=== PATIENT | male | born 1965 | race Caucasian/White ===

== ENCOUNTER 2018-04-07 11:19 | Observation (INO) | payer BC ==
[2018-04-07] MEDS ORDERED: ASPIRIN 81 MG CHEWABLE TABLETS PO ONE (11:29)
[2018-04-07 11:57] LABS: BASO % 0.6 % (0-2.0); HEMOGLOBIN 13.9 GM/dL (11.7-16.9); LYMPH % 6.6 % (8-40); MCH 30.5 pg (25.7-33.7); MCHC 34.7 g/dl (32.0-35.9); MEAN CELL VOLUME 87.8 fl (80-96); MONO % 10.9 % (3.8-10.2); NEUT % 81.9 % (42.8-82.8); PLATELET COUNT 144 K/MM3 (134-434); RBC 4.55 M/mm3 (4.00-5.60); RDW 12.9 % (11.9-15.9)
--- NOTE | 2018-04-07 12:01 | PDOC ---
History of Present Illness <Uma Nick - Last Filed: 04/07/18 14:30> - General History Source: Patient Exam Limitations: No Limitations - History of Present Illness Initial Comments: 04/07/18 11:52 The patient is a 52M with a PMH of enlarged heart, HTN, DM, "irregular heart beat" who presents to the ER with complaints of worsening lightheadedness. The patient states that he began having lightheadedness 3 days ago which has been worsening. The lightheadedness is not associated with CP, SOB, syncope, nausea, vomiting, diaphoresis. He denies any smoking, drinking, or drug use. He denies any numbness, tingling, or weakness. <Marty Lilly - Last Filed: 04/07/18 15:07> - General Chief Complaint: Revisit, Lab Variance Stated Complaint: ABNORMAL EKG Time Seen by Provider: 04/07/18 11:30 Past History <Uma Nick - Last Filed: 04/07/18 14:30> - Past Medical History Cardiac Disorders: Yes (afib, enlarged heart) COPD: No Diabetes: Yes HTN: Yes Hypercholesterolemia: Yes - Suicide/Smoking/Psychosocial Hx Smoking History: Current every day smoker Have you smoked in the past 12 months: No Information on smoking cessation initiated: No Hx Alcohol Use: No Drug/Substance Use Hx: No <Marty Lilly - Last Filed: 04/07/18 15:07> - Past Medical History Allergies/Adverse Reactions: Allergies Allergy/AdvReac Type Severity Reaction Status Date / Time No Known Allergies Allergy Verified 04/07/18 11:48 Review of Systems - Review of Systems Able to Perform ROS?: Yes Comments:: 04/07/18 12:01 GENERAL/CONSTITUTIONAL: No fever or chills. No weakness. HEAD, EYES, EARS, NOSE AND THROAT: No change in vision. No ear pain or discharge. No sore throat. CARDIOVASCULAR: No chest pain, palpitations, or lightheadedness. RESPIRATORY: No cough, wheezing, shortness of breath, or hemoptysis. GASTROINTESTINAL: No nausea, vomiting, diarrhea, constipation, or abdominal pain. GENITOURINARY: No dysuria, frequency, hematuria, or change in urination. MUSCULOSKELETAL: No joint or muscle swelling or pain. No neck or back pain. SKIN: No rash or lesions. NEUROLOGIC: Positive for lightheadedness. No headache, numbness, tingling, focal weakness, loss of consciousness, or change in strength/sensation. Is the patient limited Barbadian proficient: No <Marty Lilly - Last Filed: 04/07/18 15:07> *Physical Exam - Vital Signs Last Vital Signs Temp Pulse Resp BP Pulse Ox 100.3 F H 98 H 18 130/69 98 04/07/18 11:20 04/07/18 11:47 04/07/18 11:47 04/07/18 11:47 04/07/18 11:47 <Uma Nick - Last Filed: 04/07/18 14:30> - Vital Signs Last Vital Signs Temp Pulse Resp BP Pulse Ox 100.3 F H 98 H 18 130/69 98 04/07/18 11:20 04/07/18 11:47 04/07/18 11:47 04/07/18 11:47 04/07/18 11:47 - Physical Exam Comments: 04/07/18 12:03 GENERAL: Well developed, well nourished. Awake and alert. No acute distress. HEENT: Normocephalic, atraumatic. Hearing grossly normal. Moist mucous membranes. PERRLA, EOMI. No conjunctival pallor. Sclera are non-icteric. NECK: Supple. Full ROM. No JVD. CARDIOVASCULAR: Regular rate and rhythm. No murmurs, rubs, or gallops. PULMONARY: No evidence of respiratory distress. Coarse lung sounds in R lower lobe. ABDOMINAL: Soft. Non-tender. Non-distended. No rebound or guarding. GENITOURINARY: No CVA tenderness bilaterally. MUSCULOSKELETAL: Normal range of motion at all joints. No bony deformities or tenderness. EXTREMITIES: No cyanosis. No clubbing. No edema. No calf tenderness or swelling. SKIN: Warm and dry. Normal capillary refill. No rashes. No jaundice. NEUROLOGICAL: Alert, awake, appropriate. Cranial nerves 2-12 grossly intact.Normal speech. Gait is normal without ataxia. PSYCHIATRIC: Cooperative. Good eye contact. Appropriate mood and affect. <Marty Lilly - Last Filed: 04/07/18 15:07> Moderate Sedation - Procedure Monitoring Vital Signs: Procedure Monitoring Vital Signs Temperature 100.3 F H 04/07/18 11:20 Pulse Rate 98 H 04/07/18 11:47 Respiratory Rate 18 04/07/18 11:47 Blood Pressure 130/69 04/07/18 11:47 O2 Sat by Pulse Oximetry (%) 98 04/07/18 11:47 <ParkUma Lili - Last Filed: 04/07/18 14:30> - Procedure Monitoring Vital Signs: Procedure Monitoring Vital Signs Temperature 100.3 F H 04/07/18 11:20 Pulse Rate 98 H 04/07/18 11:47 Respiratory Rate 18 04/07/18 11:47 Blood Pressure 130/69 04/07/18 11:47 O2 Sat by Pulse Oximetry (%) 98 04/07/18 11:47 <Marty Lilly - Last Filed: 04/07/18 15:07> Heart Score/ECG Review #1 General ECG Interpretation: Sinus Rhythm, Normal Rate, Normal Intervals, No acute ischemic changes Compared to previous ECG there are: Previous ECG unavail 04/07/18 12:10 NSR vent rate 90 NV 150 QRS 98 QTc 424 No STD or GIRISH T wave inversions in II, III, aVF as well as V4-V6 No priors <Marty Lilly - Last Filed: 04/07/18 15:07> ED Treatment Course - LABORATORY CBC & Chemistry Diagram: 04/07/18 11:45 04/07/18 11:45 - ADDITIONAL ORDERS Additional order review: Laboratory Results 04/07/18 04/07/18 04/07/18 13:23 11:45 11:45 PT with INR 12.90 INR 1.09 PTT (Actin FS) 25.6 Sodium 136 Potassium 4.2 Chloride 103 Carbon Dioxide 25 Anion Gap 7 L BUN 24 H Creatinine 1.1 Creat Clearance w eGFR > 60 Random Glucose 193 H Calcium 8.9 Total Bilirubin 0.4 AST 36 ALT 72 H Alkaline Phosphatase 55 Troponin I 0.02 Total Protein 6.3 L Albumin 3.8 Opiates Screen Negative Methadone Screen Negative Barbiturate Screen Negative Phencyclidine Screen Negative Ur Amphetamines Screen Negative MDMA (Ecstasy) Screen Negative Benzodiazepines Screen Negative Cocaine Screen Negative U Marijuana (THC) Screen Negative 04/07/18 11:45 RBC 4.55 MCV 87.8 MCHC 34.7 RDW 12.9 MPV 10.0 Neutrophils % 81.9 Lymphocytes % 6.6 L Monocytes % 10.9 H Eosinophils % 0.0 Basophils % 0.6 - RADIOLOGY Radiology Studies Ordered: Category Date Time Status CHEST PA & LAT [RAD] Stat Radiology 04/07/18 11:29 Taken - Medications Given in the ED: ED Medications Discontinued Medications Generic Name Dose Route Start Last Admin Trade Name Mary Ellen PRN Reason Stop Dose Admin Aspirin 162 mg 04/07/18 11:29 04/07/18 13:05 Asa - PO 04/07/18 11:30 Not Given ONCE ONE <ParkUma Lili - Last Filed: 04/07/18 14:30> - LABORATORY CBC & Chemistry Diagram: 04/07/18 11:45 04/07/18 11:45 <Marty Lilly - Last Filed: 04/07/18 15:07> Medical Decision Making - Medical Decision Making 04/07/18 12:37 The patient is a 52M with a PMH of HTN, DM, and "enlarged heart" who presents to the ER with complaints of lightheadedness x 3 days concerning for medication side effects, ACS, arrhythmias, vasovagal. Pending flu. Trop negative. CBC WNL. 04/07/18 13:12 Influenza positive. Pt is out of window for tamiflu. CXR negative on preliminary read. Will give fluids and call financial reporting advisor to assess for t-wave inversions. 04/07/18 13:[address] Tiwari [phone]. 04/07/18 13:30 Case d/w Dr. Tiwari who states that he had an echo which showed enlarged heart. He also has a hx of abnormal EKG. Plasma Processing Centrifuge Operator's info: Dr. Barrera [phone]. Dr. Barrera only has a chart from 2008. Will assess EKG when it is faxed. 04/07/18 15:07 I have endorsed the patient to Dr. Wayne for admission. <Marty Lilly - Last Filed: 04/07/18 15:07> *DC/Admit/Observation/Transfer - Discharge Dispostion Decision to Admit order: Yes Decision to Admit order Date/Time: Decision to Admit Order Category Date Time Status Decision to Admit to Hospital Routine Admission 04/07/18 14:28 Active <Uma Nick - Last Filed: 04/07/18 14:30> - Discharge Dispostion Decision to Admit order: Yes <Marty Lilly - Last Filed: 04/07/18 15:07> Diagnosis at time of Disposition: Influenza A, Abnormal EKG, Syncope, near, Dizziness - Discharge Dispostion Condition at time of disposition: Guarded
[2018-04-07] MEDS ORDERED: ACETAMINOPHEN 1000 MG/100 ML VIAL (NON FORMULARY) IVPB ONE (12:07)
--- NOTE | 2018-04-07 12:07 | PDOC ---
Attending Attestation - Resident Resident Name: Marty Lilly - ED Attending Attestation I have performed the following: I have examined & evaluated the patient, The case was reviewed & discussed with the resident, I agree w/resident's findings & plan - HPI HPI: 04/07/18 13:35 Dippolito 52 YOM with h/o HTN, DMm enlarged heart, irregular heartbeat, presenting with 3 days of cough and congestion, +subjective fever/chills, malaise and dizziness. At urgent care today, told his EKG was abnormal. +sick family member with URI sx, . - Physicial Exam PE: 04/07/18 13:35 NAD, malaised appearing, dry membranes, nl conjunctiva, anicteric; neck supple. Left sided lungs faint crackles, Tachycardic - regular rhythm, abdomen soft nontender. OJEDA x4, no focal neuro deficits. No peripheral edema. normal color for ethnicity, WWP. - Medical Decision Making 04/07/18 13:36 See HPI for details DDx medication side effect, angina, ACS, electrolyte/metabolic derangements, influenza, viral syndrome, pna, ischemia, anemia. Vital signs reviewed, +fever and tachycardia. malaised appearing no prior notes. laboratory results and imaging reviewed, basic labs and lytes wnl, influenza positive, out of window for tamiflu benefit x 3 days history CXR_no acute pathology Cardiac panel_trop neg EKG normal sinus rhythm, no interval abnormalities, narrow QRS, ST and T wave segments and morphology normal.TWI in inferior and lateral leads - no prior to compare to. ED course: uncomplicated, O2 supplementation, IV hydration. 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 no tamiflu, out of window for benefit. hydrated with fluids contacted prior vocational instructor, Dr Barrera, last eval and EKG in 2008 - attempts to send records over. admit tele metry with droplet precautions for management of abnormal EKG, last cards eval 2008, influenza and respiratory support. influenza, near syncope, dehydration and abnormal ekg. 04/07/18 14:29 04/07/18 14:30 Heart Score/ECG Review - ECG Impressions Normal ECG: No Comment:: 04/07/18 13:37 EKG normal sinus rhythm, no interval abnormalities, narrow QRS, ST and T wave segments and morphology normal.TWI in inferior and lateral leads - no prior to compare to.
[2018-04-07 12:11] LABS: INR 1.09 (0.83-1.09); PROTHROMBIN TIME (PATIENT) 12.9 SEC (9.7-13.0)
[2018-04-07 12:14] LABS: ACTIVATED PTT 25.6 SECONDS (25.2-36.5)
[2018-04-07 12:29] LABS: ALBUMIN 3.8 g/dl (3.4-5.0); ALK PHOS 55 U/L (45-117); ANION GAP 7 MMOL/L (8-16); BILIRUBIN,TOTAL 0.4 mg/dL (0.2-1); BLOOD UREA NITROGEN 24 mg/dL (7-18); CALCIUM 8.9 mg/dL (8.5-10.1); CHLORIDE 103 mmol/L (98-107); CO2 25 mmol/L (21-32); CREATININE 1.1 mg/dL (0.55-1.3); GLUCOSE,RANDOM 193 mg/dL (74-106); POTASSIUM 4.2 mmol/L (3.5-5.1); SGOT/AST 36 U/L (15-37); SGPT/ALT 72 U/L (13-61); SODIUM 136 mmol/L (136-145); TOT PROT 6.3 g/dl (6.4-8.2)
[2018-04-07] MEDS ORDERED: ACETAMINOPHEN INJECTION 100 ML IVPB ONE (12:34)
[2018-04-07] MEDS ORDERED: IBUPROFEN 600 MG TABLET (FP) PO ONE ×2 (13:18→13:29)
[2018-04-07 13:48] LABS: COCAINE, UR NEGATIVE ng/ml (CUTOFF=300); METHADONE, UR NEGATIVE ng/ml (CUTOFF=300); OPIATES, URI NEGATIVE ng/ml (CUTOFF=300); PHENCYCLIDINE,URINE NEGATIVE ng/ml (CUTOFF=25); URINE AMPHETAMINES NEGATIVE ng/ml (CUTOFF=500); URINE BARBITURATES NEGATIVE ng/ml (CUTOFF=200); URINE BENZODIAZEPINES NEGATIVE ng/ml (CUTOFF=200)
[2018-04-07] MEDS ORDERED: SODIUM CHLORIDE 0.9% 500 ML INFUS.BAG IV ONE (14:29)
--- NOTE | 2018-04-07 14:39 | EKG ---
Test Reason : Blood Pressure : / mmHG Vent. Rate : 095 BPM Atrial Rate : 095 BPM P-R Int : 150 ms QRS Dur : 098 ms QT Int : 338 ms P-R-T Axes : 053 027 204 degrees QTc Int : 424 ms NORMAL SINUS RHYTHM CANNOT RULE OUT ANTERIOR INFARCT , AGE UNDETERMINED ABNORMAL ECG NO PREVIOUS ECGS AVAILABLE Confirmed by KIRS JOE MD ([id number]) on 04/07/2018 2:38:44 PM Referred By: Confirmed By:KRIS JOE MD
--- NOTE | 2018-04-07 17:31 | HP ---
CHIEF COMPLAINT: PCP: HISTORY OF PRESENT ILLNESS: The patient is a 52M with a PMH of enlarged heart, HTN, DM, "irregular heart beat" who presents to the ER with complaints of worsening lightheadedness. The patient states that he began having lightheadedness 3 days ago which has been worsening. The lightheadedness is not associated with CP, SOB, syncope, nausea, vomiting, diaphoresis. He denies any smoking, drinking, or drug use. He denies any numbness, tingling, or weakness. ER course was notable for: (1) (2) (3) Recent Travel: PAST MEDICAL HISTORY: HTN, DM,IRREGULAR HEART BEAT, PAST SURGICAL HISTORY: Social History: Smoking:NONE Alcohol: NONE Drugs: NIO Family History: Allergies No Known Allergies Allergy (Verified 04/07/18 11:48) HOME MEDICATIONS: Home Medications Medication Instructions Recorded Diltiazem 24Hr ER 240 mg PO DAILY 04/07/18 Glipizide 10 mg PO DAILY 04/07/18 Irbesartan 300 mg PO DAILY 04/07/18 Simvastatin 20 mg PO DAILY 04/07/18 Triamterene-Hctz 37.5-25 mg Cp PO DAILY 04/07/18 REVIEW OF SYSTEMS CONSTITUTIONAL: Absent: fever, chills, diaphoresis, generalized weakness, malaise, loss of appetite, weight change HEENT: Absent: rhinorrhea, nasal congestion, throat pain, throat swelling, difficulty swallowing, mouth swelling, ear pain, eye pain, visual changes CARDIOVASCULAR: Absent: chest pain, syncope, palpitations, irregular heart rate, lightheadedness , peripheral edema RESPIRATORY: Absent: cough, shortness of breath, dyspnea with exertion, orthopnea, wheezing, stridor, hemoptysis GASTROINTESTINAL: Absent: abdominal pain, abdominal distension, nausea, vomiting, diarrhea, constipation, melena, hematochezia GENITOURINARY: Absent: dysuria, frequency, urgency, hesitancy, hematuria, flank pain, genital pain MUSCULOSKELETAL: Absent: myalgia, arthralgia, joint swelling, back pain, neck pain SKIN: Absent: rash, itching, pallor HEMATOLOGIC/IMMUNOLOGIC: Absent: easy bleeding, easy bruising, lymphadenopathy, frequent infections ENDOCRINE: Absent: unexplained weight gain, unexplained weight loss, heat intolerance, cold intolerance NEUROLOGIC: Absent: headache, focal weakness or paresthesias, dizziness, unsteady gait, seizure, mental status changes, bladder or bowel incontinence PSYCHIATRIC: Absent: anxiety, depression, suicidal or homicidal ideation, hallucinations. PHYSICAL EXAMINATION Vital Signs - 24 hr 04/07/18 04/07/18 04/07/18 11:20 11:47 15:16 Temperature 100.3 F H 99.1 F Pulse Rate 92 H Pulse Rate [ 98 H 91 H Apical] Respiratory 16 18 18 Rate Blood Pressure 130/69 Blood Pressure 130/69 132/51 L [Right Arm] O2 Sat by Pulse 100 98 96 Oximetry (%) 04/07/18 16:57 Temperature 98.1 F Pulse Rate Pulse Rate [ 87 Apical] Respiratory 18 Rate Blood Pressure Blood Pressure 125/74 [Right Arm] O2 Sat by Pulse 98 Oximetry (%) GENERAL: Awake, alert, and fully oriented, in no acute distress. HEAD: Normal with no signs of trauma. EYES: Pupils equal, round and reactive to light, extraocular movements intact, sclera anicteric, conjunctiva clear. No lid lag. EARS, NOSE, THROAT: Ears normal, nares patent, oropharynx clear without exudates. Moist mucous membranes. NECK: Normal range of motion, supple without lymphadenopathy, JVD, or masses. LUNGS: Breath sounds equal, clear to auscultation bilaterally. No wheezes, and no crackles. No accessory muscle use. HEART: Regular rate and rhythm, normal S1 and S2 without murmur, rub or gallop. ABDOMEN: Soft, nontender, not distended, normoactive bowel sounds, no guarding, no rebound, no masses. No hepatomegaly or splenomegaly. MUSCULOSKELETAL: Normal range of motion at all joints. No bony deformities or tenderness. No CVA tenderness. UPPER EXTREMITIES: 2+ pulses, warm, well-perfused. No cyanosis. No clubbing. No peripheral edema. LOWER EXTREMITIES: 2+ pulses, warm, well-perfused. No calf tenderness. No peripheral edema. NEUROLOGICAL: Cranial nerves II-XII intact. Normal speech. Normal gait. PSYCHIATRIC: Cooperative. Good eye contact. Appropriate mood and affect. SKIN: Warm, dry, normal turgor, no rashes or lesions noted, normal capillary refill. Laboratory Results - last 24 hr 04/07/18 04/07/18 04/07/18 11:45 11:45 11:45 WBC 6.0 RBC 4.55 Hgb 13.9 Hct 40.0 MCV 87.8 MCH 30.5 MCHC 34.7 RDW 12.9 Plt Count 144 MPV 10.0 Absolute Neuts (auto) 4.9 Neutrophils % 81.9 Lymphocytes % 6.6 L Monocytes % 10.9 H Eosinophils % 0.0 Basophils % 0.6 Nucleated RBC % 0 PT with INR 12.90 INR 1.09 PTT (Actin FS) 25.6 Sodium 136 Potassium 4.2 Chloride 103 Carbon Dioxide 25 Anion Gap 7 L BUN 24 H Creatinine 1.1 Creat Clearance w eGFR > 60 Random Glucose 193 H Calcium 8.9 Total Bilirubin 0.4 AST 36 ALT 72 H Alkaline Phosphatase 55 Troponin I 0.02 Total Protein 6.3 L Albumin 3.8 Opiates Screen Methadone Screen Barbiturate Screen Phencyclidine Screen Ur Amphetamines Screen MDMA (Ecstasy) Screen Benzodiazepines Screen Cocaine Screen U Marijuana (THC) Screen Influenza A (Rapid) Influenza B (Rapid) 04/07/18 04/07/18 12:34 13:23 WBC RBC Hgb Hct MCV MCH MCHC RDW Plt Count MPV Absolute Neuts (auto) Neutrophils % Lymphocytes % Monocytes % Eosinophils % Basophils % Nucleated RBC % PT with INR INR PTT (Actin FS) Sodium Potassium Chloride Carbon Dioxide Anion Gap BUN Creatinine Creat Clearance w eGFR Random Glucose Calcium Total Bilirubin AST ALT Alkaline Phosphatase Troponin I Total Protein Albumin Opiates Screen Negative Methadone Screen Negative Barbiturate Screen Negative Phencyclidine Screen Negative Ur Amphetamines Screen Negative MDMA (Ecstasy) Screen Negative Benzodiazepines Screen Negative Cocaine Screen Negative U Marijuana (THC) Screen Negative Influenza A (Rapid) Positive A Influenza B (Rapid) Negative ASSESSMENT/PLAN: # Dizziness with abnormal EKG with T wave inversion in inferior leads. Would r/o ACS >> Serial CE, EKG. TTE R/O LVD, Valvular abn. Please admit to TELE. The patient states that he had extensive cardiac w/u done almost 10 YEARS ago. # HTN/DM2 > Please c/w current home meds. # Influenza >> No role of antiviral as been sick > 3 days. No need for GI/DVT ppx. Plan d/w the patient and the family in details at bedside. Visit type - Emergency Visit Emergency Visit: Yes ED Registration Date: 04/07/18 Care time: The patient presented to the Emergency Department on the above date and was hospitalized for further evaluation of their emergent condition. - New Patient This patient is new to me today: Yes Date on this admission: 04/07/18 - Critical Care Critical Care patient: No
[2018-04-07 18:11] VITALS: BMI 34.9
[2018-04-07] MEDS ORDERED: ATORVASTATIN CA 20 MG TABLET (FP) PO SCH (22:00)
[2018-04-07] MEDS: ACETAMINOPHEN 325 MG TABLET (FP) PO PRN (22:32)
[2018-04-08] MEDS ORDERED: IBUPROFEN 400 MG TABLET (FP) PO PRN (01:39)
[2018-04-08] MEDS ORDERED: metFORMIN HCL 500 MG TABLET (FP) PO SCH (07:00)
[2018-04-08] MEDS ORDERED: glipiZIDE 5 MG TABLET (FP) PO SCH (07:00)
[2018-04-08] MEDS ORDERED: sitaGLIPtin PHOSPHATE 50 MG TABLET PO SCH (07:00)
[2018-04-08] MEDS ORDERED: FENOFIBRIC ACID 135 MG CAP PO SCH (10:00)
--- NOTE | 2018-04-08 10:31 | ECHO ---
Version: 1 Name: PAULINE PAPPAS Exam: Adult Echocardiogram Study Date: 04/08/2018, 8:19 AM Age: 52 Years MMode/2D Measurements & Calculations IVSd: 1.08 cm LVIDs: 2.26 cm LVIDd: 4.3 cm LVPWd: 1.21 cm LAV (MOD-bp): 57.3 ml Ao root diam: 2.6 cm LA dimension: 4.0 cm Doppler Measurements & Calculations Lat Peak E' Terell: 10.3 cm/sec Med Peak E' Terell: 7.4 cm/sec Procedure A two-dimensional transthoracic echocardiogram with color flow and Doppler was performed in limited views only. Left Ventricle Ejection Fraction = 55-60%. Left Ventricular Filling pattern is normal for age. Right Ventricle The right ventricle is normal in size and function. Atria The left atrium is mildly dilated. Mitral Valve There is mild mitral valve thickening. There is no mitral valve stenosis. There is mild mitral regur gitation. Tricuspid Valve The tricuspid valve is normal in structure and function. There is mild tricuspid regurgitation. Aortic Valve The aortic valve opens well. No hemodynamically significant valvular aortic stenosis. No aortic regu rgitation is present. Pulmonic Valve The pulmonic valve is not well seen, but is grossly normal. There is no pulmonic valvular stenosis. Great Vessels The aortic root is normal size. Pericardium/Pleura There is no pericardial effusion. Summary Statements Ejection Fraction = 55-60%. The right ventricle is normal in size and function. The left atrium is mildly dilated. There is mild mitral valve thickening. There is mild mitral regurgitation. There is mild tricuspid regurgitation. There is no pericardial effusion. MD Cameron *Swetha 04/08/2018, 10:30 AM Ordering Physician: Carlee Wayne Performed By: Kailee White
[2018-04-08 10:35] VITALS: BP 148/63; PULSE 78
--- NOTE | 2018-04-08 11:39 | EKG ---
Test Reason : Blood Pressure : / mmHG Vent. Rate : 073 BPM Atrial Rate : 073 BPM P-R Int : 170 ms QRS Dur : 096 ms QT Int : 346 ms P-R-T Axes : 066 054 247 degrees QTc Int : 381 ms NORMAL SINUS RHYTHM T WAVE ABNORMALITY, CONSIDER INFEROLATERAL ISCHEMIA ABNORMAL ECG WHEN COMPARED WITH ECG OF 07-APR-2018 11:42, NO SIGNIFICANT CHANGE WAS FOUND Confirmed by DENISE HUGHES, ADAMARIS ([id number]) on 04/08/2018 11:38:32 AM Referred By: Confirmed By:ADAMARIS WALKER MD
--- NOTE | 2018-04-08 13:49 | DS ---
Physical Exam: SUBJECTIVE: Patient seen and examined, He has no complaints at this time. He states that he has been with no chest pain and has unlimited ET at baseline . with no change in the past couple of months. He had fever last night but has no cough, no SOB and no Chest pain OBJECTIVE: Vital Signs Period Temp Pulse Resp BP Sys/Jiménez Pulse Ox Last 24 Hr 98.1 F-102.2 F 72-91 18-20 125-148/51-74 96-98 PHYSICAL EXAM GENERAL: The patient is awake, alert, and fully oriented, in no acute distress. HEAD: Normal with no signs of trauma. EYES: PERRL, extraocular movements intact, sclera anicteric, conjunctiva clear. ENT: Ears normal, nares patent, oropharynx clear without exudates, moist mucous membranes. NECK: Trachea midline, full range of motion, supple. LUNGS: Breath sounds equal, clear to auscultation bilaterally, no wheezes, no crackles, no accessory muscle use. HEART: Regular rate and rhythm, S1, S2 without murmur, rub or gallop. ABDOMEN: Soft, nontender, nondistended, normoactive bowel sounds, no guarding, no rebound, no hepatosplenomegaly, no masses. EXTREMITIES: 2+ pulses, warm, well-perfused, no edema. NEUROLOGICAL: Cranial nerves II through XII grossly intact. Normal speech, gait not observed. PSYCH: Normal mood, normal affect. SKIN: Warm, dry, normal turgor, no rashes or lesions noted. LABS Laboratory Results - last 24 hr 04/07/18 04/07/18 13:23 17:10 Troponin I 0.02 Opiates Screen Negative Methadone Screen Negative Barbiturate Screen Negative Phencyclidine Screen Negative Ur Amphetamines Screen Negative MDMA (Ecstasy) Screen Negative Benzodiazepines Screen Negative Cocaine Screen Negative U Marijuana (THC) Screen Negative CBCD WBC 6.0 K/mm3 (4.0-10.0) 04/07/18 11:45 RBC 4.55 M/mm3 (4.00-5.60) 04/07/18 11:45 Hgb 13.9 GM/dL (11.7-16.9) 04/07/18 11:45 Hct 40.0 % (35.4-49) 04/07/18 11:45 MCV 87.8 fl (80-96) 04/07/18 11:45 MCHC 34.7 g/dl (32.0-35.9) 04/07/18 11:45 RDW 12.9 % (11.9-15.9) 04/07/18 11:45 Plt Count 144 K/MM3 (134-434) 04/07/18 11:45 MPV 10.0 fl (7.5-11.1) 04/07/18 11:45 CMP Sodium 136 mmol/L (136-145) 04/07/18 11:45 Potassium 4.2 mmol/L (3.5-5.1) 04/07/18 11:45 Chloride 103 mmol/L (98-107) 04/07/18 11:45 Carbon Dioxide 25 mmol/L (21-32) 04/07/18 11:45 Anion Gap 7 MMOL/L (8-16) L 04/07/18 11:45 BUN 24 mg/dL (7-18) H 04/07/18 11:45 Creatinine 1.1 mg/dL (0.55-1.3) 04/07/18 11:45 Creat Clearance w eGFR > 60 (>60) 04/07/18 11:45 Random Glucose 193 mg/dL (74-106) H 04/07/18 11:45 Calcium 8.9 mg/dL (8.5-10.1) 04/07/18 11:45 Total Bilirubin 0.4 mg/dL (0.2-1) 04/07/18 11:45 AST 36 U/L (15-37) 04/07/18 11:45 ALT 72 U/L (13-61) H 04/07/18 11:45 Alkaline Phosphatase 55 U/L (45-117) 04/07/18 11:45 Total Protein 6.3 g/dl (6.4-8.2) L 04/07/18 11:45 Albumin 3.8 g/dl (3.4-5.0) 04/07/18 11:45 CARDIAC ENZYMES Troponin I 0.02 ng/ml (0.00-0.05) 04/07/18 17:10 HOSPITAL COURSE: He was admitted for generalized fatigue, bodyache and fever, and was found to have Influenza. He has DM, HTN and has mentioned HX of cardiac work up for irregular heart couple of years ago and he is on diltiazem 240 mg XR daily. He was admitted for evaluation of the abnormal EKG, with no dynamic changes, negative cardiac markers and no TTE with no wall motion abnormalities, he states that at baseline he has unlimited ET and no recent change in that which is a good indicator for no new ischemic events. He will be DCed home on Tamiflu, He was educated about the development of bacterial PNA on the viral infection and the importance of returning to the hospital for further W/U. 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 also he is on fenofibrate( should be on statins as well) Date of Admission:04/07/18 Date of Discharge: 04/08/18 Minutes to complete discharge: 75 Discharge Summary Reason For Visit: INFLUENZA DUE TO INFLUENZA VIRUS, TYPE Current Active Problems Abnormal EKG (Acute) Dizziness (Acute) Influenza A (Acute) Syncope, near (Acute) Condition: Guarded - Instructions - Home Medications Comprehensive Discharge Medication List: Ambulatory Orders Diltiazem 24Hr ER 240 mg PO DAILY 04/07/18 Glipizide 10 mg PO DAILY 04/07/18 Irbesartan 300 mg PO DAILY 04/07/18 Simvastatin 20 mg PO DAILY 04/07/18 Triamterene-Hctz 37.5-25 mg Cp PO DAILY 04/07/18 This patient is new to me today: No Emergency Visit: No Critical Care patient: No - Discharge Referral Referred to [facility] No
[2018-04-08] MEDS ORDERED: OSELTAMIVIR PHOSPHATE 75 MG CAPSULE PO ONE (14:00)
[2018-04-08] MEDS: ACETAMINOPHEN 325 MG TABLET (FP) PO PRN (14:25)
[2018-04-08] MEDS ORDERED: PT OWN MED DRAWER 7, Y5N ONE (15:06)
[2018-04-08 15:38] VITALS: TEMP 100.8
== END 2018-04-08 15:36 | disposition home or self-care (01) ==
LOC: JER 11:19 → INTOOBSV 14:28 → JERBED 14:28 → J4S 17:27
PROVIDERS: ADMIT Internal Medicine; ATTEND Internal Medicine
PROC: 3E033NZ Introduction of Analgesics, Hypnotics, Sedatives into Peripheral Vein, Percutaneous Approach (ICD-10-PCS; principal; 2018-04-07)
PROC: 3E0337Z Introduction of Electrolytic and Water Balance Substance into Peripheral Vein, Percutaneous Approach (ICD-10-PCS; 2018-04-07)
DX: J09.X2 Influenza due to identified novel influenza A virus with other respiratory manifestations (principal); R94.31 Abnormal electrocardiogram [ECG] [EKG]; R55 Syncope and collapse; R42 Dizziness and giddiness; I49.9 Cardiac arrhythmia, unspecified; I11.9 Hypertensive heart disease without heart failure; E11.9 Type 2 diabetes mellitus without complications; E78.5 Hyperlipidemia, unspecified; F17.210 Nicotine dependence, cigarettes, uncomplicated; Z79.84 Long term (current) use of oral hypoglycemic drugs
CPT/HCPCS: 36415; 71046-TC-FY; 80053; 80307; 82962; 84484; 85025; 85610; 85730; 87040; 87086; 87186; 87804; 93005; 93010; 93306-TC; 99284-25; G0378; J0131

== ENCOUNTER 2020-09-23 11:32 | Emergency (ER) | payer BC, OTHER ==
[2020-09-23 11:38] VITALS: TEMP 98.3; BMI 37.5
[2020-09-23] MEDS ORDERED: ACETAMINOPHEN 500 MG TABLET (FP) PO ONE (12:38)
[2020-09-23] MEDS ORDERED: ACETAMINOPHEN 500 MG TABLET (FP) ONE (12:46)
[2020-09-23 13:35] LABS: BASO % 0.6 % (0-2.0); EOS % 1.4 % (0-4.5); HEMATOCRIT 43.8 % (35.4-49); HEMOGLOBIN 14.8 GM/dL (11.7-16.9); LYMPH % 18.7 % (8-40); MCH 29.5 pg (25.7-33.7); MCHC 33.7 g/dl (32.0-35.9); MEAN CELL VOLUME 87.6 fl (80-96); MEAN PLT VOLUME 9.6 fl (7.5-11.1); MONO % 8.2 % (3.8-10.2); NEUT % 71.1 % (42.8-82.8); PLATELET COUNT 173 10^3/uL (134-434); RBC 5.01 M/mm3 (4.00-5.60); RDW 13.7 % (11.9-15.9); WHITE BLOOD COUNT 7.6 K/mm3 (4.0-10.0)
[2020-09-23 14:05] LABS: ALBUMIN 3.9 g/dl (3.4-5.0); BLOOD UREA NITROGEN 24.7 mg/dL (7-18); CALCIUM 9.5 mg/dL (8.5-10.1)
[2020-09-23 14:08] LABS: CREATININE 0.8 mg/dL (0.55-1.3)
[2020-09-23 14:10] LABS: BILIRUBIN,TOTAL 0.6 mg/dL (0.2-1); TOT PROT 6.3 g/dl (6.4-8.2)
[2020-09-23 16:18] VITALS: BP 142/71; PULSE 78
[2020-09-23] MEDS ORDERED: KETOROLAC TROMETHAMINE 15 MG/ML VIAL IVPUSH ONE (17:29)
[2020-09-23] MEDS ORDERED: KETOROLAC TROMETHAMINE 15 MG/ML VIAL ONE (17:43)
== END 2020-09-23 18:20 | disposition home or self-care (01) ==
LOC: JER 11:32
PROC: 3E033GC Introduction of Other Therapeutic Substance into Peripheral Vein, Percutaneous Approach (ICD-10-PCS; principal; 2020-09-23)
DX: S32.028A Other fracture of second lumbar vertebra, initial encounter for closed fracture (principal); S22.41XA Multiple fractures of ribs, right side, initial encounter for closed fracture; W11.XXXA Fall on and from ladder, initial encounter
CPT/HCPCS: 36415; 70450-TC; 71260-TC; 72125-TC; 72128-TC; 72131-TC; 74177-TC; 80053; 85025; 99285-25; Q9967